=== PATIENT | male | born 1990 | race African-American/Black ===

== ENCOUNTER 2016-06-09 05:57 | Emergency (ER) | payer OTHER ==
[2016-06-09] MEDS ORDERED: TETANUS AND DIPHTHERIA TOXOID 0.5 ML DISP.SYRIN IM ONE (06:18)
[2016-06-09] MEDS ORDERED: BACITRACIN 30 GM TUBE TOPICAL OINTMENT TP ONE (06:18)
[2016-06-09 06:19] VITALS: PULSE 82; TEMP 98; BMI 46.2
--- NOTE | 2016-06-09 06:24 | PDOC ---
[id number] 4d FALL/HEAD INJURY Time Seen by Provider: 06/09/16 06:00 History Source: Patient Exam Limitations: No Limitations - History of Present Illness Initial Comments: 06/09/16 06:19 25yo Male patient presents to ED c/o head injury/ laceration. Patient states while walking he slipped on black ice and hit his head. He denies LOC, or neck injury but states he saw "lights." Patient denies PmHx, CP, Abd pain, Diff breathing, or any other complaints at this time. He currently takes Motrin and Cyclobenzaprine for recently back injury, but has not complaints of acute back pain. Reports Tetanus: not up to date. Timing/Duration: reports: 1-3 hours Severity: Yes: mild Associated Symptoms: denies: denies symptoms, confusion, fatigue, fever/chills, insomnia, loss of consciousness, muscle spasms, nausea/vomiting, numbness in legs/feet, paresthesia, ringing in ears, seizures, sleepy, slurred speech, tingling in legs/feet, trouble walking, vision changes, weakness, other Past History - Travel Traveled outside of the country in the last 30 days: No Close contact w/someone who was outside of country & ill: No - Past Medical History Allergies/Adverse Reactions: Allergies Allergy/AdvReac Type Severity Reaction Status Date / Time No Known Allergies Allergy Verified 06/09/16 06:09 Home Medications: Ambulatory Orders Cyclobenzaprine HCl [Flexeril -] 10 mg PO HS 06/09/16 Ibuprofen [Motrin -] 800 mg PO TID 06/09/16 Other medical history: back pain - Psycho/Social/Smoking Cessation Hx Suicidal Ideation: No Smoking History: Current some day smoker Information on smoking cessation initiated: No Neuro Specific PMHX - Complaint Specific PMHX Glaucoma: No Herniated Disk: No Laminectomy: No Migraine: No Multiple Sclerosis: No Neuropathy: No TIA: No Review of Systems - Review of Systems Able to Perform ROS?: Yes Is the patient limited Thai proficient: No Constitutional: No: Symptoms Reported, See HPI, Chills, Diaphoresis, Fever, Loss of Appetite, Malaise, Night Sweats, Weakness, Weight Stable, Unintentional Wgt. Loss, Unexplained wgt Loss, Other HEENTM: No: Symptoms Reported, See HPI, Eye Pain, Blurred Vision, Tearing, Recent change in vision, Double Vision, Cataracts, Ear Pain, Ocular Prothesis, Ear Discharge, Nose Pain, Nose Congestion, Tinnitus, Nose Bleeding, Hearing Loss , Throat Pain, Throat Swelling, Mouth Pain, Dental Problems, Difficulty Swallowing, Mouth Swelling, Other Respiratory: No: Symptoms reported, See HPI, Cough, Orthopnea, Shortness of Breath, SOB with Exertion, SOB at Rest, Stridor, Wheezing, Productive cough, Hemoptysis, Other Cardiac (ROS): No: Symptoms Reported, See HPI, Chest Pain, Edema, Irregular Heart Rate, Lightheadedness, Palpitations, Syncope, Chest Tightness, Other ABD/GI: No: Symptoms Reported, See HPI, Abdominal Distended, Abd. Pain w/ defecation, Blood Streaked Bowels, Constipated, Diarrhea, Difficulty Swallowing , Nausea, Poor Appetite, Poor Fluid Intake, Rectal Bleeding, Vomiting, Indigestion, Abdominal cramping, Tarry Stools, Other Musculoskeletal: Yes: Back Pain, Other (Head Injury). No: Neck Pain All Other Systems: Reviewed and Negative *Physical Exam - Vital Signs Last Vital Signs Temp Pulse Resp BP Pulse Ox 98 F 82 17 141/82 100 06/09/16 06:09 06/09/16 06:09 06/09/16 06:09 06/09/16 06:09 06/09/16 06:09 - Physical Exam General Appearance: Yes: Nourished, Appropriately Dressed. No: Apparent Distress, Mild Distress, Moderate Distress, Severe Distress HEENT: positive: EOMI, EDWINA, Normal ENT Inspection, Normal Voice, Symmetrical, TMs Normal, Pharynx Normal. negative: Pale Conjunctivae, Photophobia, Scleral Icterus (R), Scleral Icterus (L), Muffled/Hoarse voice, Pharyngeal Erythema, Tonsillar Exudate, Tonsillar Erythema, Nasal Congestion, Rhinorrhea, Sinus Tenderness, Orbits, Hearing Decreased, Hearing Grossly Normal, TM Bulging, TM Dull, TM Erythema, Lesions, Coreas, Excessive drooling, Thrush, Other Neck: positive: Trachea midline, Supple. negative: Tender, Normal Thyroid, Rigid, Carotid bruit, Decreased range of motion, Stridor, Lymphadenopathy (R), Lymphadenopathy (L), Rigidity, Tender lateral, Tender midline, Thyromegaly, Other Respiratory/Chest: positive: Lungs Clear, Normal Breath Sounds. negative: Chest Tender, Respiratory Distress, Accessory Muscle Use, Labored Respiration, Rapid RR, Decreased Breath Sounds, Paradoxal Breathing, Crackles, Rales, Rhonchi , Stridor, Wheezing, Hyperresonant, Dullness, Plerual Rub, Other Cardiovascular: positive: Regular Rhythm, Regular Rate. negative: S1, S2, Edema , JVD, Murmur, Bradycardia, Tachycardia, Diastolic Murmur, Systolic Murmur, Gallop/S3, Gallop/S4, Irregularly Irregular, Irregular, Other Gastrointestinal/Abdominal: positive: Normal Bowel Sounds, Soft, Distended. negative: Tender, Flat, Organomegaly, Pulsatile Mass, Increased Bowel Sounds, Decreased BS, Protuberent, Guarding, Rebound, Tenderness, Hernia, Mass, Hepatomegaly, Spleenomegaly, Other Musculoskeletal: positive: Normal Inspection. negative: CVA Tenderness, CVA Tenderness (R), CVA Tenderness (L), Decreased Range of Motion, Muscle Spasm, Vertebral Tenderness, Other Extremity: positive: Normal Capillary Refill, Normal Inspection, Normal Range of Motion, Pelvis Stable. negative: Tender, Coldness, Cyanosis, Delayed Capillary Refill, Pedal Edema, Swelling, Calf Tenderness, Erythema, Inflammation , Other Integumentary: positive: Normal Color, Dry, Warm, Other (Skin abrasion to scalp with no active bleeding.) Neurologic: positive: automobile brake bonder II-XII NML intact, Fully Oriented, Alert, Normal Mood/ Affect, Normal Response, Motor Strength 5/5. negative: Abnormal Cranial NS, Respond to painful stimul, Responsive, EOM Palsy, Facial Droop, Numbness, Sensory Deficit, Finger to Nose, Confused, Disoriented, Depressed Affect, Babinski, Other ED Treatment Course - RADIOLOGY Radiology Studies Ordered: Category Date Time Status CERVICAL SPINE CT W/O CONTR [CT] Stat CT Scan 06/09/16 06:[address] WITHOUT CONTRAST [CT] Stat CT Scan 06/09/16 06:18 Ordered *DC/Admit/Observation/Transfer Diagnosis at time of Disposition: Fall Qualifiers: Encounter type: initial encounter Qualified Code(s): W19.XXXA - Unspecified fall, initial encounter - Discharge Dispostion Disposition: HOME Condition at time of disposition: Improved Admit: No - Referrals Referrals: Curt,Moe N., MD [Primary Care Provider] - - Patient Instructions Printed Discharge Instructions: How to Prevent Falls Additional Instructions: You fell today and hit your head. You CT scans were normal here. You may return to work. Keep you abrasion covered while at work. Use bacitracin over the site as well to protect from infection. If you have new headaches, vision changes, dizziness, or vomiting, return to the ED - Post Discharge Activity Work/School Note: Back to Work
[2016-06-09] MEDS ORDERED: CEPHALEXIN MONOHYDRATE 500 MG CAPSULE (UD) PO ONE (06:27)
--- NOTE | 2016-06-09 07:19 | PDOC ---
*Physical Exam - Vital Signs Last Vital Signs Temp Pulse Resp BP Pulse Ox 98 F 82 17 141/82 100 06/09/16 06:09 06/09/16 06:09 06/09/16 06:09 06/09/16 06:09 06/09/16 06:09 - Physical Exam Comments: 06/09/16 07:42 GENERAL: Patient is awake, alert and in no acute distress. Speech is clear and appropriate. HEAD: 2 cm abrasion on the posterior skull bleeding is controlled. Nontender. HEENT: Pupils are equal round and reactive to light, extraocular movements are intact ( -) raccoon sign, petit sign . The tympanic membranes are clear, no hemotympanum. No facial deformity. No facial bone tenderness or step-off. No nasal septal hematoma. The oropharynx is clear. NECK: The trachea is midline, there is no stridor. There is no midline cervical spine tenderness, full range of motion of neck. CHEST: Non-tender, no ecchymosis or abrasions. Equal chest wall expansion bilaterally. No flail segments. Lungs are clear to auscultation bilaterally. CARDIOVASCULAR: S1-S2, regular rate and rhythm. No murmurs or rubs. ABDOMEN: Soft, nontender, nondistended. Bowel sounds are normoactive. There is no abdominal or flank ecchymosis. BACK/PELVIS: There is no midline thoracic or lumbosacral spine tenderness or step-off. Pelvis is stable and nontender. EXTREMITIES: There is no extremity deformity or joint swelling. No focal bony tenderness throughout. 2+ distal pulses throughout. NEURO: Alert and oriented x3. Cranial nerves II through XII are intact. 5 out of 5 motor strength x4 extremities. No gross sensory deficits. [id number] is intact. No pronator drift. Gait is stable. SKIN: No abrasions, hematomas, lacerations. PSYCH: Affect is appropriate ED Treatment Course - Medications Given in the ED: ED Medications Discontinued Medications Generic Name Dose Route Start Last Admin Trade Name Freq PRN Reason Stop Dose Admin Bacitracin 1 applic 06/09/16 06:18 06/09/16 06:24 Bacitracin - TP 06/09/16 06:19 1 applic ONCE ONE Administration Tetanus/Diphtheria Toxoids Adsorbed 0.5 ml 06/09/16 06:18 06/09/16 06:26 Decavac - IM 06/09/16 06:19 0.5 ml .ONCE ONE Administration Medical Decision Making - Medical Decision Making 06/09/16 07:45 Received sign out from Nikki Cruz. iPass given. Received a new tetanus booster and dose of antibiotics for the head abrasion. Pt. at CT scan at time of sign out awaiting results. Pt. is a 25 y/o male who presents to the ED this morning after slipping and falling in his driveway. Pt. states that he hit his head but denies LOC. Admits to seeing flashing lights at the time of the fall. Pt. also admits to a head abrasion. Pt presents to the ED to get checked out. Denies headache, vision changes, chest pain, SOB, dyspnea, abdominal pain, N/V/D. Waiting CT head and neck results. 06/09/16 08:43 CT results are in at this time. CT scan of the brain shows no evidence of a focal intracranial lesion or hemorrhage. CT scan of the C-spine show satisfactory alignment. No gross fracture or subluxation is seen. No prevertebral soft tissue swelling is identified. Given results of CT scans patient may be discharged at this time. Patient is feeling better than when he came in. Directed patient to return to the ED if increasing headaches, nausea, or vomiting, or dizziness. *DC/Admit/Observation/Transfer Diagnosis at time of Disposition: Fall Qualifiers: Encounter type: initial encounter Qualified Code(s): W19.XXXA - Unspecified fall, initial encounter - Discharge Dispostion Disposition: HOME Condition at time of disposition: Improved Admit: No - Referrals Referrals: Moe Elias MD [Primary Care Provider] - - Patient Instructions Additional Instructions: You fell today and hit your head. You CT scans were normal here. You may return to work. Keep you abrasion covered while at work. Use bacitracin over the site as well to protect from infection. If you have new headaches, vision changes, dizziness, or vomiting, return to the ED - Post Discharge Activity Work/School Note: Back to Work
[2016-06-09] MEDS ORDERED: CEPHALEXIN MONOHYDRATE 250 MG CAPSULE (FP) ONE (07:55)
[2016-06-09 09:23] VITALS: BP 110/67
== END 2016-06-09 09:24 | disposition home or self-care (01) ==
LOC: JER 05:57
PROC: 3E0234Z Introduction of Serum, Toxoid and Vaccine into Muscle, Percutaneous Approach (ICD-10-PCS; principal; 2016-06-09)
DX: S00.01XA Abrasion of scalp, initial encounter (principal); W00.2XXA Other fall from one level to another due to ice and snow, initial encounter; Y93.89 Activity, other specified; Y92.093 Driveway of other non-institutional residence as the place of occurrence of the external cause; Y99.8 Other external cause status
CPT/HCPCS: 70450-TC; 72125-TC; 99281-25

== ENCOUNTER 2022-09-29 12:01 | Emergency (ER) | payer OTHER ==
[2022-09-29 12:17] VITALS: BP 116/63; PULSE 89; RESP 18; TEMP 97.9; BMI 41.1
[2022-09-29] MEDS ORDERED: KETOROLAC TROMETHAMINE 30 MG/1 ML VIAL IM ONE (13:11)
[2022-09-29] MEDS ORDERED: KETOROLAC TROMETHAMINE 30 MG/1 ML VIAL ONE (13:18)
== END 2022-09-29 14:35 | disposition home or self-care (01) ==
LOC: JER 12:01
PROC: 3E0233Z Introduction of Anti-inflammatory into Muscle, Percutaneous Approach (ICD-10-PCS; principal; 2022-09-29)
DX: R50.9 Fever, unspecified (principal); R06.02 Shortness of breath; R07.89 Other chest pain; R05.9 Cough, unspecified; J40 Bronchitis, not specified as acute or chronic; Z20.822 Contact with and (suspected) exposure to COVID-19
CPT/HCPCS: 0241U-QW; 71046-TC-FY; 93005; 93010; 99285-25